=== PATIENT | male | born 1985 ===

== ENCOUNTER 2025-01-25 10:02 | Emergency (ER) | payer MEDICAID, OTHER, SELFPAY ==
--- NOTE | 2025-01-25 10:30 | ED_ITS ---
HPI - General Adult General Chief complaint: Back Pain/Injury Stated complaint: Headache Time Seen by Provider: 01/25/25 10:28 Source: patient and dry roller (all interactions with this patient were facilitated with an [facility] accounts receivable associate) Mode of arrival: ambulatory Limitations: language barrier (all interactions with this patient were facilitated with an [facility] accounts receivable associate) History of Present Illness ED Provider: Armida Rubio PA-C HPI narrative: Patient is a 39 year old assigned male at with no reported medical history presenting to the emergency department today with right shoulder pain, back pain, and pimples to his scalp and farr. Patient states that over the last 5 days he has had worsening right shoulder pain and decreased right shoulder ROM. Patient states that he has also been dealing with full back pain and pimples to his farr and scalp. 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 Patient denies any dizziness, lightheadedness, abdominal pain, nausea, vomiting, fever, chills, blurry vision, double vision, loss of vision, chest pain, difficulty breathing, shortness of breath, night sweats, pain with urination, increased urinary frequency, increased urinary urgency, blood in his urine or stool, syncope or a near syncopal episode, bowel incontinence, bladder incontinence, or any other complaints at this time. Treatments prior to arrival: NSAID (600 mg of ibuprofen with no relief) Related Data Previous Rx's ?Medication ?Instructions ?Recorded cyclobenzaprine 5 mg tablet 5 mg PO TID PRN muscle spasm 7 01/25/25 days #21 tabs doxycycline hyclate 100 mg tablet 100 mg PO BID 7 days #14 tabs 01/25/25 prednisone 20 mg tablet 20 mg PO DAILY 7 days #7 tabs 01/25/25 Allergies Allergy/AdvReac Type Severity Reaction Status Date / Time No Known Allergies Allergy Verified 01/25/25 10:39 Review of Systems Constitutional: Constitutional: Reports no additional constitutional complaints, Denies chills, Denies fever(s) and Denies night sweats Eyes: Eyes: Reports no additional eye complaints, Denies blurry vision, Denies change in vision, Denies diplopia, Denies eye discharge, Denies loss of vision and Denies eye pain ENT: Denies dizziness Cardiovascular: Cardiovascular: Reports no additional cardiovascular complaints, Denies chest pain, Denies lightheadedness, Denies Loss of Consciousness and Denies dyspnea Respiratory: Respiratory: Reports no additional respiratory complaints and Denies dyspnea Gastrointestinal: Gastrointestinal: Reports no additional gastrointestinal complaints, Denies abdominal pain, Denies melena, Denies hematochezia, Denies change in bowel habits and Denies change in stool character Genitourinary: Genitourinary: Reports no additional male genitourinary complaints, Denies hematuria, Denies oliguria, Denies difficulty urinating, Denies dysuria, Denies urinary frequency, Denies urinary hesitancy, Denies urinary incontinence and Denies urinary urgency Musculoskeletal: Musculoskeletal: Reports no additional musculoskeletal complaints, Denies numbness and Denies tingling Comments: right shoulder pain full back pain Integumentary/Breasts: Comments: scalp and farr pimples Neurologic: Denies dizziness, Denies loss of vision, Denies numbness and Denies tingling Psychiatric: Psychiatric: Reports no additional psychiatric complaints Endocrine: Endocrine: Reports no additional endocrine complaints Hematologic/Lymphatic: Hematologic/Lymphatic: Reports no additional hem atologic/lymphatic complaints Allergic/Immunologic: Allergic/Immunologic: Reports no additional allergic/immunologic complaints PMFSH Past Medical History Attestation statement: The following information was validated with the patient. Source: old records reviewed and nursing notes reviewed Social History Social History Advance Directives: No Advance Directives Information Provided: Yes Physical Exam ED Vital Signs: Vital Signs - 24 hr 01/25/25 10:36 01/25/25 11:49 Temperature 98.7 F 98.7 F Pulse Rate 78 78 Respiratory Rate 16 16 Blood Pressure 103/55 L 103/55 L Pulse Oximetry 99 99 Oxygen Delivery Method Room Air Room Air BMI result Body Mass Index 26.5 Const General: cooperative, no acute distress, alert and awake Nutritional Appearance: well nourished Orientation/consciousness: patient oriented x3 Limitations: language barrier (all interactions with this patient were facilitated with an [facility] Northern Irish int) HENMT Other: scalp shows multiple areas of erythema and minimal swelling consistent with folliculitis goatee / farr shows no evidence of folliculitis at this time Head: Yes normal to inspection and Yes atraumatic Ears: hearing grossly normal bilaterally and external ears normal General nose exam: Normal external nose present, no nasal discharge noted and no epistaxis Face and sinus: Yes normal facial exam, No abrasion and No laceration Mouth: Normal oral and palatal mucosa present, no drooling and no muffled voice Eyes General: appearance normal, both eyes and all related structures Periorbital: periorbital findings normal Eyelids: Yes eyelids normal Conjunctivae: conjunctivae normal Pupils: Equal, round and reactive pupils present EOM: EOMs intact bilaterally Neck Neck: Yes normal visual inspection, Yes full ROM and Yes no lymphadenopathy Resp Effort & Inspection: normal respiratory effort and able to speak in complete sentences Neuro General: patient oriented x3, moves all extremities and CN's II-XI intact bilaterally Cranial nerves: Yes Equal, round and reactive pupils present Cognition (Neuro): normal cognition Extrem Other: decreased ROM of the right rotator cuff secondary to pain General: Yes normal to inspection and Yes capillary refill normal Psych Appearance: grossly normal Mental Status: mental status grossly normal Affect: normal affect Attitude: cooperative Thought process: Normal thought process present Thought content: Normal thought content present Insight: Good insight present (Psych) Medications Administered Discontinued Medications Generic Name Dose Route Start Last Admin Trade Name Brisa PRN Reason Stop Dose Admin Cyclobenzaprine HCl 5 mg 01/25/25 11:22 01/25/25 11:32 Cyclobenzaprine Hcl 5 Mg Tablet PO 01/25/25 11:23 5 mg ONCE ONE Administration Ketorolac Tromethamine 15 mg 01/25/25 11:22 01/25/25 11:32 Ketorolac Tromethamine 15 Mg/Ml Vial IM 01/25/25 11:23 15 mg ONCE ONE Administration Prednisone 20 mg 01/25/25 11:22 01/25/25 11:32 Prednisone 20 Mg Tablet PO 01/25/25 11:23 20 mg ONCE ONE Administration Medical Decision Making Medical Decision Making [facility] Narrative: Patient is a 39 year old assigned male at with no reported medical history presenting to the emergency department today with right shoulder pain, back pain, and pimples to his scalp and farr. Patient's physical exam was as noted in the physical exam portion of this note. Patient's clinical presentation is most consistent with follilculitis, shoulder pain likely secondary to a rotator cuff dysfunction / injury, and mechanical back pain. I explained my physical exam findings to the patient. I answered all questions asked by the patient. I stressed the importance of the patient taking his medication as directed (either prescribed or as the over the counter packaging recommends). I stressed the importance of the patient following up with his primary care provider, the orthopedic team, and a color control operator. I stressed the importance of the patient returning to the emergency department immediately if his symptoms were to worsen or if he were to develop any dizziness, shortness of breath, difficulty breathing, chest pain, blurry vision, loss of vision, nausea, vomiting, abdominal pain, fever, chills, back pain, or any other complaints. Patient verbalized agreement and understanding with this treatment plan and discharge. Differential Diagnosis Differential Diagnoses: The differential diagnosis associated with the presentation includes Folliculitis Rotator cuff dysfunction / injury Mechanical back pain Admission/Observation Consideration of admission/observation: Escalation of care including admission/observation considered Patient would have been admitted to the hospital had his clinical presentation warranted hospital admission. Prescription Management I considered prescription management with: Pain Medication (patient prescribed pain management) and Antibiotic (patient prescribed an antibiotic for folliculitis) Discharge Plan Discharge Clinical Impression: Rotator cuff disorder, Back pain, Folliculitis Patient Disposition: Home, Self-Care Instructions: Rotator Cuff Injury (ED), Folliculitis (ED), Back Pain (ED), Rotator Cuff Injury Exercises (DC) Additional Instructions: Follow up with your primary care provider, the orthopedic team, and a color control operator. Return to the emergency department immediately if your symptoms worsen or if you develop any dizziness, shortness of breath, difficulty breathing, chest pain, blurry vision, loss of vision, nausea, vomiting, abdominal pain, fever, chills, back pain, or any other complaints. Miki un seguimiento con antonio m?dico de atenci?n primaria, el equipo ortop?dico y un dermat?logo. Vuelva inmediatamente a urgencias si stan s?ntomas empeoran o si presenta mareos, falta de aliento, dificultad para respirar, dolor tor?cico, visi?n borrosa, p?rdida de visi?n, n?useas, v?mitos, dolor abdominal, fiebre, escalofr?os, dolor de espalda o cualquier otra molestia. Please see the information below about our Patient Portal. If you are not yet enrolled in the [facility] Patient Portal, you will receive an enrollment email invitation following your visit to any [facility] care setting. You may also self-enroll in the Patient Portal by visiting our website: [email or web address] The following information is required to access the Patient Portal: - Your [facility] Medical Record Number - Your personal home email address (must match what is in your electronic medical record, Registration staff can assist with this) - Name - Date of Capabilities of the Patient Portal: - Message some providers - View upcoming appointments - Access your health summary, medical history, and visit history - View current conditions and allergies - View procedure and lab results - View your medications, including guidelines, side effects, and precautions - Complete pre-appointment questionnaires requested by your provider - Ready summary reports of your office visits and procedures To access the Patient Portal Mobile Nick, follow these directions: - Search [employer] in the Nick Store or [employer] Store - Download the Nick - Search for [facility] - Enter your login/password Portal del paciente Si usted no esta inscrito en el portal de pacientes de [facility] y [facility], recibira roney invitacion de inscripcion despues de antonio visita al [facility] o al [facility] via correo electronico. Tambien puede inscribirse voluntariamente en el portal de pacientes visitando nuestra pagina web: [email or web address] La siguiente informacion sera requerida para acceder al portal: - Antonio derrick de historia medica de [facility] - Antonio direccion de correo electronico personal - Nombre - Fecha de nacimiento Capacidades: Las siguientes capacidades estan disponibles en el portal de pacientes: - Enviar mensajes a algunos doctores - Verificar proximas citas - Acceso a antonio historial de saulo, registro medico e historial de visitas - Leona las condiciones actuales y alergias leona procedimientos y resultados del laboratorio - Leona stan medicamentos, incluyendo las pautas - Efectos secundarios y precauciones - Completar o llenar formularios / cuestionarios de - Citas solicitadas por antonio doctor - Leer los resumenes de reportes medicos de stan visitas y procedimientos [place] acceder a la aplicacion movil: - Leonela [employer] en la Nick Store o [employer] Store - Descargue la aplicacion - [facility] - Ingrese antonio nombre de usuario / Contrasena Prescriptions: New cyclobenzaprine 5 mg tablet 5 mg PO TID PRN (Reason: muscle spasm) 7 Days Qty: 21 0RF prednisone 20 mg tablet 20 mg PO DAILY 7 Days Qty: 7 0RF doxycycline hyclate 100 mg tablet 100 mg PO BID 7 Days Qty: 14 0RF Referrals: [facility] [Provider Group] (Call to establish and follow up with a color control operator about your scalp and farr lesions. Llame para establecer y realizar un seguimiento con un dermat?logo sobre stan lesiones en el cuero cabelludo y la de la rosa.) [facility] Family Medicine [Provider Group] (Call to establish and follow up with a primary care provider. If you already have a primary care provider, please follow up with them. Llame para establecer y hacer un seguimiento con un proveedor de atenci?n primaria. Si ya tiene un proveedor de atenci?n primaria, miki un seguimiento con ?l.) [facility] [Provider Group] (Call to establish and follow up with a primary care provider. If you already have a primary care provider, please follow up with them. Llame para establecer y hacer un seguimiento con un proveedor de atenci?n primaria. Si ya tiene un proveedor de atenci?n primaria, miki un seguimiento con ?l.) [facility] Primary Care, [facility] [Provider Group] (Call to establish and follow up with a primary care provider. If you already have a primary care provider, please follow up with them. Llame para establecer y hacer un seguimiento con un proveedor de atenci?n primaria. Si ya tiene un proveedor de atenci?n primaria, miki un seguimiento con ?l.) [facility] Primary Care, [facility] [Provider Group] (Call to establish and follow up with a primary care provider. If you already have a primary care provider, please follow up with them. Llame para establecer y hacer un seguimiento con un proveedor de atenci?n primaria. Si ya tiene un proveedor de atenci?n primaria, miki un seguimiento con ?l.) [facility] Primary Care, [facility] [Provider Group] (Call to establish and follow up with a primary care provider. If you already have a primary care provider, please follow up with them. Llame para establecer y hacer un seguimiento con un proveedor de atenci?n primaria. Si ya tiene un proveedor de atenci?n primaria, miki un seguimiento con ?l.) [facility] [Provider Group] (Call to establish and follow up with the orthopedic team about your right shoulder pain and back pain. Llame para establecer y realizar un seguimiento con el equipo ortop?dico acerca de antonio dolor en el hombro derecho y el dolor de espalda.) [facility] [Provider Group] (Call to establish and follow up with a color control operator about your scalp and farr lesions. Llame para establecer y realizar un seguimiento con un dermat?logo sobre stan lesiones en el cuero cabelludo y la de la rosa.) Stand Alone Forms: Work/School Release Interventions: ED Discharge Assessment Last Done: 01/25/25 11:49 Discharge Date/Time: 01/25/25 11:50 Print Language: [place] Irish
[2025-01-25 10:36] VITALS: BP 103/55; PULSE 78; RESP 16; TEMP 37.1; O2SAT 99; BMI 26.5
[2025-01-25] MEDS: predniSONE 20 MG TABLET PO (11:32)
[2025-01-25] MEDS: Ketorolac Tromethamine 15 MG/ML VIAL IM (11:32)
[2025-01-25] MEDS: Cyclobenzaprine HCl 5 MG TABLET PO (11:32)
[2025-01-25 11:49] VITALS: BP 103/55; PULSE 78; RESP 16; TEMP 37.1; O2SAT 99
== END 2025-01-25 11:50 | disposition home or self-care (01) ==
PROVIDERS: Emergency Provider Emergency Medicine Emergency Medical Services
DX: S46.001A Unspecified injury of muscle(s) and tendon(s) of the rotator cuff of right shoulder, initial encounter (principal); X50.0XXA Overexertion from strenuous movement or load, initial encounter; M25.511 Pain in right shoulder; M54.9 Dorsalgia, unspecified; L73.9 Follicular disorder, unspecified; Y93.89 Activity, other specified; Y92.9 Unspecified place or not applicable; Y99.0 Civilian activity done for income or pay
CPT/HCPCS: 96372; 99283; 99284; J1885